=== PATIENT | male | born 1965 | race Hispanic/Latino ===

== ENCOUNTER → 2017-10-18 | Outpatient (CLI) | payer BC ==
--- NOTE | 2017-10-18 17:47 | Diagnostic Imaging Report ---
PROCEDURE:TESTICULAR ULTRASOUND COMPARISON:None. INDICATIONS:BENIGN PROSTATIC HYPERPLASIA TECHNIQUE: Garcia-scale and color doppler images of the testicles and scrotal contents were obtained. Duplex imaging with spectral waveform analysis was performed of the testicular arteries and veins. FINDINGS: RIGHT SCROTUM: Testicle: 3.8 x 2.4 x 3.3 cm. Normal echogenicity. Normal vascularity. No focal lesions. Epididymal head: 1.1 x 1.0 x 1.0 cm. Normal echogenicity. Normal vascularity. No focal lesions. Hydrocele: None Varicocele: None LEFT SCROTUM: Testicle: 4.1 x 2.4 x 2.9 cm. Normal echogenicity appear normal. Vascularity. No focal lesions. Epididymal head: 1.3 x 1.0 x 1.0 cm. Normal echogenicity. Normal vascularity. No focal lesions. Hydrocele: None Varicocele: None. Normal bilateral arterial and venous flow is documented. No evidence of inguinal hernia. Overlying scrotal skin and soft tissues are unremarkable. CONCLUSION: 1. Essentially unremarkable exam. Normal bilateral testicular size and echogenicity, without focal lesions. No evidence of torsion. Soto Roberts M.D. Dictated by: Soto Roberts M.D. on 10/18/2017 at 17:52 Electronically approved by: Soto Roberts M.D. on 10/18/2017 at 17:52
--- NOTE | 2017-10-18 17:48 | Diagnostic Imaging Report ---
PROCEDURE:TESTICULAR DOPPLER ULTRASOUND COMPARISON:None. INDICATIONS:BENIGN PROSTATIC HYPERPLASIA CONCLUSION: Please see previously dictated report under testicular ultrasound performed same day. Soto Roberts M.D. Dictated by: Soto Roberts M.D. on 10/18/2017 at 17:53 Electronically approved by: Soto Roberts M.D. on 10/18/2017 at 17:53
== END ==
LOC: US 16:33
PROVIDERS: ATTEND Internal Medicine
DX: N40.0 Benign prostatic hyperplasia without lower urinary tract symptoms (principal)
CPT/HCPCS: 76870; 93976